=== PATIENT | male | born 1950 | race Caucasian/White ===

== ENCOUNTER 2018-06-09 10:26 | Inpatient (IN) | payer BC, OTHER ==
[~2018-06-09] VITALS: Ht 167.6 cm; Wt 93.6 kg
[2018-06-09 11:15] LABS: HEMATOCRIT 39.7 % (38.0-50.0); HEMOGLOBIN 13.4 G/DL (12.5-16.6); MCH 28.7 PG (29.0-34.0); MCHC 33.8 G/DL (30.0-36.0); PLATELET COUNT 224 K/uL (156-360); RBC DIS.WIDTH-CV 16.3 % (11.8-14.6); RBC DIS.WIDTH-SD 50.4 % (39-53); RED BLOOD COUNT 4.67 M/uL (4.00-5.50); WHITE BLOOD COUNT 19.5 K/uL (4.1-10.2)
[2018-06-09 11:24] LABS: CHLORIDE 102 mEq/L (99-109); POTASSIUM 4.4 mEq/L (3.7-5.4); SODIUM 140 mEq/L (136-147)
[2018-06-09 11:26] LABS: GLUCOSE 203 mg/dL (70-99)
[2018-06-09 11:30] LABS: CREATININE 2.7 mg/dL (0.6-1.3); GFR ESTIMATE (CALCULATED) 25 mL/min/ (58.99-99999); UREA NITROGEN (BUN) 43 mg/dL (9-23)
[2018-06-09 11:36] LABS: TROP-I INTERPRETATION NEGATIVE; TROPONIN-I 0.06 ng/mL (0.0-0.30)
[2018-06-09 14:50] LABS: APPEARANCE TURBID ((CLEAR)); BILIRUBIN NEGATIVE; BLOOD MODERATE; COLOR AMBER ((YELLOW)); GLUCOSE (STRIP) NEGATIVE; KETONES NEGATIVE; LEUKOCYTES LARGE; NITRITE NEGATIVE; PROTEIN (STRIP) >=500; SPECIFIC GRAVITY 1.018 (1.000-1.030); UROBILINOGEN 0.2 MG/DL (0.2-1.0)
[2018-06-09 16:23] LABS: EPITHELIAL CELLS 1+ /HPF; MUCUS NONE SEEN /LPF; RED BLOOD CELLS RARE /HPF (0-5); WHITE BLOOD CELLS TNTC /HPF (0-5)
[2018-06-09 16:24] LABS: AMORPHOUS URATES CRYSTALS 2+; BACTERIA 3+ /HPF; UCUL ADDED? YES
[2018-06-09 18:00] VITALS: BP 165/74
[2018-06-09 19:32] VITALS: BP 154/72
[2018-06-09] MEDS ORDERED: FENOFIBRATE145 M1 PO (19:56)
[2018-06-09] MEDS ORDERED: BYSTOLIC5 MG PO (19:57)
[2018-06-09] MEDS ORDERED: VALSARTAN-HCTZ1 EAC1 PO (19:57)
[2018-06-09] MEDS ORDERED: ESOMEPRAZOLE MA40 MG PO (19:57)
[2018-06-09] MEDS ORDERED: ATORVASTATIN CA40 MG PO (19:58)
[2018-06-09] MEDS ORDERED: DIABETA5 MG PO (19:58)
[2018-06-09] MEDS ORDERED: HUMULIN R100 UNITS/ SC (19:59)
[2018-06-09] MEDS ORDERED: VITAMIN D-32000 UNI2 PO (20:00)
[2018-06-09] MEDS ORDERED: ONE DAILY1 EAC3 PO (20:00)
[2018-06-09] MEDS ORDERED: ADVIL200 MG PO (20:00)
[2018-06-09] MEDS ORDERED: LO-DOSE ASPIRIN81 M1 PO (20:00)
[2018-06-09] MEDS ORDERED: CALCIUM 500 MG1 EACH PO (20:01)
[2018-06-09] MEDS ORDERED: SYMBICORT60 INHALAT IH (20:01)
[2018-06-09] MEDS ORDERED: LEVEMIR100 UNIT/2 SC ×2 (20:02→20:03)
[2018-06-09] MEDS ORDERED: GLUCOPHAGE XR750 MG PO (20:02)
[2018-06-09 23:06] VITALS: BP 131/63
[2018-06-10] VITALS (7 sets, daily range): BP systolic 123–161; BP diastolic 60–82
[2018-06-10 06:00] LABS: HEMATOCRIT 37.9 % (38.0-50.0); HEMOGLOBIN 12.4 G/DL (12.5-16.6); MCHC 32.7 G/DL (30.0-36.0); MCV 85.6 FL (86-99); PLATELET COUNT 192 K/uL (156-360); RBC DIS.WIDTH-CV 16.5 % (11.8-14.6); RBC DIS.WIDTH-SD 51.1 % (39-53); RED BLOOD COUNT 4.43 M/uL (4.00-5.50); WHITE BLOOD COUNT 13.4 K/uL (4.1-10.2)
[2018-06-10 06:29] LABS: ALBUMIN 2.9 G/DL (3.2-4.8); CHLORIDE 103 MEQ/L (99-109); CREATININE 2.3 MG/DL (0.6-1.3); GFR ESTIMATE (CALCULATED) 30 mL/min/ (58.99-99999); POTASSIUM 4.1 MEQ/L (3.7-5.4); SODIUM 140 MEQ/L (136-147); UREA NITROGEN (BUN) 45 mg/dL (9-23)
[2018-06-10 06:34] LABS: GLUCOSE 54 mg/dL (70-99)
[2018-06-10 08:03] LABS: INTACT PARATHYROID HORMONE 20 pg/mL (10-69)
[2018-06-10 16:38] LABS: C DIFF TOXIN NEGATIVE (NEGATIVE)
[2018-06-11 04:01] VITALS: BP 116/57
[2018-06-11 06:50] LABS: HEMATOCRIT 32.3 % (38.0-50.0); HEMOGLOBIN 10.8 G/DL (12.5-16.6); MCH 28.3 PG (29.0-34.0); MCHC 33.4 G/DL (30.0-36.0); MCV 84.6 FL (86-99); PLATELET COUNT 159 K/uL (156-360); RBC DIS.WIDTH-CV 16.6 % (11.8-14.6); RBC DIS.WIDTH-SD 51.4 % (39-53); RED BLOOD COUNT 3.82 M/uL (4.00-5.50); WHITE BLOOD COUNT 10.6 K/uL (4.1-10.2)
[2018-06-11 07:21] LABS: CHLORIDE 102 MEQ/L (99-109); CREATININE 2.1 MG/DL (0.6-1.3); GFR ESTIMATE (CALCULATED) 34 mL/min/ (58.99-99999); GLUCOSE 133 mg/dL (70-99); POTASSIUM 3.9 MEQ/L (3.7-5.4); SODIUM 137 MEQ/L (136-147); UREA NITROGEN (BUN) 37 mg/dL (9-23)
[2018-06-11 07:34] VITALS: BP 129/60
[2018-06-11 14:45] VITALS: BP 122/58
[2018-06-11 17:26] VITALS: BP 125/56
[2018-06-11 19:39] VITALS: BP 123/75
[2018-06-11 23:34] VITALS: BP 164/67
[2018-06-12] VITALS (7 sets, daily range): BP systolic 117–162; BP diastolic 50–74
[2018-06-12 07:30] LABS: CHLORIDE 102 MEQ/L (99-109); CREATININE 2.5 MG/DL (0.6-1.3); GFR ESTIMATE (CALCULATED) 28 mL/min/ (58.99-99999); POTASSIUM 4.2 MEQ/L (3.7-5.4); SODIUM 135 MEQ/L (136-147); UREA NITROGEN (BUN) 40 mg/dL (9-23)
[2018-06-12 07:33] LABS: GLUCOSE 242 mg/dL (70-99)
[2018-06-13 03:27] VITALS: BP 131/60
[2018-06-13 06:49] LABS: CHLORIDE 104 MEQ/L (99-109); CREATININE 2.1 MG/DL (0.6-1.3); GFR ESTIMATE (CALCULATED) 34 mL/min/ (58.99-99999); POTASSIUM 3.8 MEQ/L (3.7-5.4); SODIUM 141 MEQ/L (136-147); UREA NITROGEN (BUN) 39 mg/dL (9-23)
[2018-06-13 06:52] LABS: GLUCOSE 93 mg/dL (70-99)
[2018-06-13 07:13] VITALS: BP 137/62
[2018-06-13 11:16] VITALS: BP 150/68
[2018-06-13 11:47] LABS: HEMOGLOBIN A1c (GLYCOHEMOGLOB) 11.1 % (Below 5.7)
[2018-06-13] MEDS ORDERED: AMLODIPINE BESYL5 MG PO (15:06)
[2018-06-13] MEDS ORDERED: LEVEMIR100 UNIT/2 SC (15:07)
[2018-06-13] MEDS ORDERED: NOVOLOG 10100 UNITS/ SC (15:07)
[2018-06-13] MEDS ORDERED: CIPRO500 MG PO (15:12)
[2018-06-13 15:43] VITALS: BP 167/73
== END 2018-06-13 18:19 | DRG 872 ==
LOC: EME 10:26 → 5EAST 15:59 → EDOF 15:59 → ENRESERV 16:02 → 5EAST 17:37
PROVIDERS: Emergency Medicine; Internal Medicine; Physician Assistant
PROC: 0T778DZ Dilation of Left Ureter with Intraluminal Device, Via Natural or Artificial Opening Endoscopic (ICD-10-PCS; principal; 2018-06-11)
DX: A41.9 Sepsis, unspecified organism (principal); N13.6 Pyonephrosis; B96.20 Unspecified Escherichia coli [E. coli] as the cause of diseases classified elsewhere; N17.9 Acute kidney failure, unspecified; E86.0 Dehydration; E83.52 Hypercalcemia; E11.65 Type 2 diabetes mellitus with hyperglycemia; E11.649 Type 2 diabetes mellitus with hypoglycemia without coma; Z66 Do not resuscitate; E11.21 Type 2 diabetes mellitus with diabetic nephropathy; J44.9 Chronic obstructive pulmonary disease, unspecified; I10 Essential (primary) hypertension; F17.200 Nicotine dependence, unspecified, uncomplicated; Z79.82 Long term (current) use of aspirin; Z79.4 Long term (current) use of insulin; Z91.14 Patient's other noncompliance with medication regimen
CPT/HCPCS: 71046; 74176; 78582; 80048; 80069; 81003; 82306; 82948; 83036; 83605; 83970; 84484; 85027; 85379; 86334; 86335; 87040; 87077; 87086; 87186; 87493; 93005; 93926; 94640; 94799; 97530 GO; 97530 GP; 99281; 99284; A9540; A9567; C1758; C2625; J0696; J1644; J1815; J2405; J2543; J7030; J7050; J7120